=== PATIENT | male | born 1985 | race American Indian/Alaskan Native ===

== ENCOUNTER 2020-12-14 06:13 | Emergency (ER) | payer OTHER ==
[2020-12-14 06:52] VITALS: BP 136/87
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
== END 2020-12-14 08:11 | disposition home or self-care (01) ==
LOC: ED 06:13
DX: S76.111A Strain of right quadriceps muscle, fascia and tendon, initial encounter (principal); S09.90XA Unspecified injury of head, initial encounter; V49.49XA Driver injured in collision with other motor vehicles in traffic accident, initial encounter; Y93.89 Activity, other specified; Y92.89 Other specified places as the place of occurrence of the external cause; Y99.8 Other external cause status
CPT/HCPCS: 99281